=== PATIENT | male | born 1990 | race African-American/Black ===

== ENCOUNTER 2017-06-06 15:02 | Emergency (ER) | payer OTHER ==
[~2017-06-06] VITALS: Ht 180.3 cm; Wt 66.7 kg
[~2017-06-06 15:02] MED LIST: ALBUTEROL HFA INH; ALBUTEROL17 GM INH; ALBUTEROL17 GM NEB; ALPRAZOLAM PO; ATROVENT NEB; AVADART; CELEXA PO; COMBIGAN; DELTASONE20 MG PO; DOXYCYCLINE PO; LASIX PO; LISINOPRIL PO; MEDROL PO; MEDROL4 MG/DOSE- PO; METHADONE PO; NASONEX17 GM; NEURONTIN PO; PHENERGAN PO; PRAVACHOL PO; PREDNISONE PO; REGLAN PO; TRAZODONE PO; UROXATRAL10 MG PO; VIBRAMYCIN100 M1 PO
== END 2017-06-06 17:21 | disposition home or self-care (01) ==
LOC: SED 15:02
DX: J45.901 Unspecified asthma with (acute) exacerbation (principal); Z79.899 Other long term (current) drug therapy
CPT/HCPCS: 94640; 94644; 99284